=== PATIENT | female | born 1990 | race American Indian/Alaskan Native ===

== ENCOUNTER 2018-04-02 05:47 | Emergency (ER) | payer BC ==
[2018-04-02] MEDS ORDERED: MOTRIN ONE (06:22)
[2018-04-02 06:39] VITALS: BP 120/86
[2018-04-02] MEDS ORDERED: MOTRIN PO ONE (06:42)
--- NOTE | 2018-04-02 07:35 | XRay Report ---
FINAL REPORT PROCEDURE: XR SHOULDER 2+V LT TECHNIQUE: LEFT shoulder radiographs including AP views in internal and external rotation and abduction. CPT 98315 HISTORY: Left shoulder pain COMPARISON: No prior studies are available for comparison. FINDINGS: Fracture (s) and/or Dislocation(s): None . Joint space(s): Normal . Soft tissues: Normal . Bone mineralization: Normal . Foreign bodies: None . IMPRESSION: Normal Examination
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
[2018-04-02 08:39] LABS: Hematocrit 44.7 % (30.3-42.9); Hemoglobin 14.6 gm/dl (10.1-14.3); Mean Corpuscular HGB Conc 33 % (30-34); Mean Corpuscular Hemoglobin 29 pg (28-32); Mean Corpuscular Volume 88 fl (79-97); Platelet Count 290 K/mm3 (140-440); Red Cell Distribution Width 13.3 % (13.2-15.2)
[2018-04-02 09:09] LABS: Alanine Aminotransferase 13 units/L (7-56); Albumin 4.4 g/dL (3.9-5); BUN/Creatinine Ratio 10; Blood Urea Nitrogen 6 mg/dL (7-17); Calcium 9.7 mg/dL (8.4-10.2); Hemolysis Index 44
== END 2018-04-02 09:45 | disposition home or self-care (01) ==
LOC: ED 05:47
DX: M25.512 Pain in left shoulder (principal); M94.0 Chondrocostal junction syndrome [Tietze]
CPT/HCPCS: 36415; 80053; 84484; 85027; 93005; 93010; 99284